=== PATIENT | male | born 1990 | race Two or more races ===

== ENCOUNTER 2025-01-05 11:26 | Emergency (ER) | payer SELFPAY ==
[~2025-01-05] VITALS: Ht 167.6 cm; Wt 113.0 kg
--- NOTE | 2025-01-05 11:34 | ECG ---
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
--- NOTE | 2025-01-05 12:35 | ECG ---
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
[2025-01-05 12:45] LABS: Hematocrit 45.8 % (41.0-53.0); Hemoglobin 15.6 g/dL (13.5-17.5); Mean Corpuscular Hemoglobin 27.9 pg (28.0-32.0); Mean Corpuscular Volume 82.1 fL (80.0-100.0); Nucleated Red Blood Cells % 0.1 %
[2025-01-05 12:52] LABS: Chloride 107 mmol/L (98-107); Potassium 4.0 mmol/L (3.5-5.1); Sodium 142 mmol/L (136-145)
[2025-01-05 12:53] LABS: Anion Gap 13 (5-15); Calcium 9.9 mg/dL (8.7-10.4); Carbon Dioxide 22 mmol/L (20-31)
--- NOTE | 2025-01-05 12:57 | DVH ---
CLINICAL INFORMATION: Chest pain. TECHNIQUE: Frontal and lateral chest radiographs were obtained. COMPARISON: None FINDINGS: Lungs: Clear. Cardiac: Heart size is within normal limits. Pulmonary vasculature: Unremarkable Mediastinum/anca: Within normal limits. Bones: No evidence of acute osseous abnormality. Other: No other significant finding. IMPRESSION: No evidence of acute disease in the chest.
[2025-01-05 12:58] LABS: BUN/Creatinine Ratio 13.2 (10.0-20.0); Blood Urea Nitrogen 15 mg/dL (9-23)
[2025-01-05 12:59] LABS: Glucose 131 mg/dL (74-106)
--- NOTE | 2025-01-05 14:54 | ECG ---
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
--- NOTE | 2025-01-05 16:59 | ED.PDOC ---
HPI Comments 34 y/o M, with PMHx of HTN, DM, and kidney stones presents to the ED for CC of chest pain. Patient states, he has been experiencing right sided chest pain with associated symptoms of shortness of breath x4days. Patient reports, pain to be "stabbing" in nature. Patient further relays, that he has not taken any medications for his hypertension since, June 2024. Patient denies palpitations, nausea, vomiting, or headache. No other symptoms or modifying factors are present at this time. Chief Complaint: Chest Pain Time Seen by MD: 14:00 Reviewed Notes: Nurses Notes, Medications, Allergies Allergies: Coded Allergies: NO KNOWN ALLERGIES (Unverified , 01/05/25) Information Source: Patient Mode of Arrival: Ambulatory Severity: Moderate Timing: Days Duration: Since onset Prehospital treatment: None Location: Chest (R) Radiation: Neck Quality: Stabbing Onset: At Rest Cardiac Risk Factors: Hyperlipidemia, HTN, Diabetes PE Risk Factors: None History of: Aortic Disease Modifying Factors: Nothing Associated Signs and Symptoms: SOB Past Medical History PAST MEDICAL HISTORY: DM, High Lipids, HTN Surgical History (Other): aortic disection Family History Family History: Unknown Social History Smoker: Non-Smoker Alcohol: Denies ETOH Use Drugs: Denies Drug Use Lives In: Home Constitutional: denies: chills, diaphoresis, fatigue, fever, malaise, sweats, weakness, others EENTM: denies: blurred vision, double vision, ear bleeding, ear discharge, ear drainage, ear pain, ear ringing, eye pain, eye redness, hearing loss, mouth pain, mouth swelling, nasal discharge, nose bleeding, nose congestion, nose pain, photophobia, tearing, throat pain, throat swelling, voice changes, others Respiratory: reports: shortness of breath; denies: cough, hemoptysis, orthopnea, SOB at rest, SOB with excertion, stridor, wheezing, others Cardiovascular: reports: chest pain; denies: dizzy spells, diaphoresis, Dyspnea on exertion, edema, irregular heart beat, left arm pain, lightheadedness, palpitations, PND, syncope, others Gastrointestinal: denies: abdomen distended, abdominal pain, blood streaked bowels, constipated, diarrhea, dysphagia, difficulty swallowing, hematemesis, melena, nausea, poor appetite, poor fluid intake, rectal bleeding, rectal pain, vomiting, others Genitourinary: denies: burning, dysuria, flank pain, frequency, hematuria, incontinence, penile discharge, penile sore, pain, testicle pain, testicle swelling, urgency, others Neurological: denies: dizziness, fainting, headache, left sided numbness, left sided weakness, numbness, paresthesia, pre-existing deficit, right sided numbness, right sided weakness, seizure, speech problems, tingling, tremors, weakness, others Musculoskeletal: denies: back pain, gout, joint pain, joint swelling, muscle pain, muscle stiffness, neck pain, others Integumetry: denies: bruises, change in color, change in hair/nails, dryness, laceration, lesions, lumps, rash, wounds, others Allergic/Immunocompromised: denies: Difficulty Healing, Frequent Infections, Hives, Itching, others Hematologic/Lymphatic: denies: anemia, blood clots, easy bleeding, easy bruising, swollen glands, others Endocrine: denies: excessive hunger, excessive sweating, excessive thirst, excessive urination, flushing, intolerance to cold, intolerance to heat, une xplained weight gain, unexplained weight loss, others Psychiatric: denies: anxiety, bipolar disorder, depression, hopeless, panic disorder, schizophrenia, sleepless, suicidal, others All Other Systems: Reviewed and Negative Physical Exam General Appearance: Moderate Distress HEENT: Normal ENT Inspection, Pharynx Normal, TMs Normal Neck: Full Range of Motion, Non-Tender, Normal, Normal Inspection Respiratory: Chest Non-Tender, Lungs Clear, No Accessory Muscle Use, No Respiratory Distress, Normal Breath Sounds Cardiovascular: No Edema, No JVD, No Murmur, No Gallop, Normal Peripheral Pulses, Regular Rate/Rhythm Breast Exam: Deferred Gastrointestinal: No Organomegaly, Non Tender, No Pulsatile Mass, Normal Bowel Sounds, Soft Genitalia: Deferred Pelvic: Deferred Rectal: Deferred Extremities: No calf tenderness, Normal capillary refill, Normal inspection, Normal range of motion, Non-tender, No pedal edema Musculoskeletal : Apperance: Normal Neurologic: Alert, body trimmer upholsterer II-XII nml as Tested, No Motor Deficits, Normal Affect, Normal Mood, No Sensory Deficits Cerebellar Function: Normal Reflexes: Normal Skin: Dry, Normal Color, Warm Lymphatic: No Adenopathy EKG EKG : Pulse Rate (adult): 109 [place]: Normal Cardiac Rhythm: ST Block: None Hypertrophy: None ST: Normal Was a procedure done? Was a procedure done?: No CP Differential Dx Differential Diagnosis: Angina Differential Diagnosis: Chest Wall Pain, Costochondritis, Esophageal reflux/spasm, Gastritis X-Ray, Labs, Meds, VS Vital Signs Date Time Temp Pulse Resp B/P (MAP) Pulse Ox O2 Delivery O2 Flow Rate FiO2 01/05/25 16:59 109 01/05/25 16:28 98.1 102 12 150/98 (115) 98 98.1 01/05/25 14:53 91 01/05/25 14:18 98.1 106 16 173/113 (133) 97 98.1 01/05/25 12:34 97 01/05/25 12:21 100 97 Room Air 01/05/25 12:21 98.7 100 17 154/103 (120) 97 98.7 01/05/25 11:31 109 01/05/25 11:29 98.9 106 23 186/101 97 98.9 Lab Test 01/05/25 15:35 01/05/25 13:44 01/05/25 11:40 Range/Units Troponin I High Sensitivity 3 L < 3 L 3 L </=54 ng/L White Blood Count 8.8 4.4-10.8 10^3/uL Red Blood Count 5.58 4.5-5.90 10^6/uL Hemoglobin 15.6 13.5-17.5 g/dL Hematocrit 45.8 41.0-53.0 % Mean Corpuscular Volume 82.1 80.0-100.0 fL Mean Corpuscular Hemoglobin 27.9 L 28.0-32.0 pg Mean Corpuscular Hemoglobin Concent 34.0 32.0-36.0 g/dL Red Cell Distribution Width 14.7 H 11.8-14.3 % Platelet Count 293 140-450 10^3/uL Mean Platelet Volume 8.5 6.9-10.8 fL Neutrophils (%) (Auto) 74.0 37.0-80.0 % Lymphocytes (%) (Auto) 19.4 10.0-50.0 % Monocytes (%) (Auto) 4.7 0.0-12.0 % Eosinophils (%) (Auto) 1.1 0.0-7.0 % Basophils (%) (Auto) 0.8 0.0-2.0 % Neutrophils # (Auto) 6.5 1.6-8.6 10 ^3/uL Lymphocytes # (Auto) 1.7 0.4-5.4 10 ^3/uL Monocytes # (Auto) 0.4 0-1.3 10 ^3/uL Eosinophils # (Auto) 0.1 0-0.8 10 ^3/uL Basophils # (Auto) 0.1 0-0.2 10 ^3/uL Nucleated Red Blood Cells 0.1 % D-Dimer, Quantitative 0.21 0.0-0.49 mg/L FEU Sodium Level 142 136-145 mmol/L Potassium Level 4.0 3.5-5.1 mmol/L Chloride Level 107 98-107 mmol/L Carbon Dioxide Level 22 20-31 mmol/L Anion Gap 13 5-15 Blood Urea Nitrogen 15 9-23 mg/dL Creatinine 1.14 0.700-1.30 mg/dL Glomerular Filtration Rate Calc 85 >90 mL/min BUN/Creatinine Ratio 13.2 10.0-20.0 Serum Glucose 131 H 74-106 mg/dL Calcium Level 9.9 8.7-10.4 mg/dL Current Medications Medications (Trade) Dose Ordered Sig/Citlaly Route Start Time Stop Time Status Last Admin Aspirin 162 mg ONCE ONCE PO 01/05/25 12:00 01/05/25 12:02 DC 01/05/25 12:08 The patient's CBC is within normal limits The chemistry panel is within normal limits The patient's aspirin has 162 mg by mouth The patient's troponin level x3 is negative At this time, the patient is being admitted to the hospitalist Images Reviewed?: Images reviewed and evaluated by me Time of 1ST Reevaluation: 14:30 Reevaluation 1ST: Unchanged Patient Education/Counseling: Diagnosis, Treatment, Prognosis Family Education/Counseling: No Family Present SEPSIS Sepsis Screen Date sepsis recognized/suspect: Jan 05, 2025 Time Sepsis recognized/suspect: 1129 Recent Procedure: No On Antibiotic Therapy: No Respiratory Rate >20: Yes Heart Rate >90: Yes Temp<36 C (96.8 F) or >38.3 C: No SBP <90 or MAP <65 mmHG: No New Acute Mental Status Change: No Is the patient on CPAP, BIPAP,: No Physician Orders Heplock Iv (01/05/25 12:00) Business Consultant (01/05/25 12:00) Blood Pressure (01/05/25 12:00) Pulse Oximetry (01/05/25 12:00) Chest Two Views Routine (01/05/25 12:00) Admit (01/05/25 16:59) Nitroglycerin Sublingual (Ntrostat Subli (01/05/25 17:00) Morphine Sulfate Injection (01/05/25 17:00) Oxygen By Nasal Cannula (01/05/25 16:59) Stat Ekg For Chest Pain (01/05/25 16:59) Notify Md Of Changes From Base (01/05/25 16:59) Car Inspection And Repair Manager For 24 Hours (01/05/25 16:59) Emergency Dysrhythmia Protocol (01/05/25 16:59) Pantoprazole (Protonix) (01/06/25 10:00) Ondansetron Hcl (Zofran) (01/05/25 17:00) Losartan Tablet (Cozaar Tablet) (01/06/25 10:00) Losartan Tablet (Cozaar Tablet) (01/05/25 17:00) Metoprolol Xl Succinate (Toprol Xl) (01/05/25 17:00) Metoprolol Xl Succinate (Toprol Xl) (01/06/25 10:00) Ct Angio Chest Contrast (01/05/25 16:59) Comprehensive Metabolic Panel (01/06/25 04:00) Complete Blood Count (01/06/25 04:00) Acetaminophen Tablet (Tylenol Tablet) (01/05/25 17:00) Hydrocodone-Acet 5/325mg Tab ([place] 5/32 (01/05/25 17:00) Vital Signs Date Time Temp Pulse Resp B/P (MAP) Pulse Ox O2 Delivery O2 Flow Rate FiO2 01/05/25 16:59 109 01/05/25 16:28 98.1 102 12 150/98 (115) 98 98.1 01/05/25 14:53 91 01/05/25 14:18 98.1 106 16 173/113 (133) 97 98.1 01/05/25 12:34 97 01/05/25 12:21 100 97 Room Air 01/05/25 12:21 98.7 100 17 154/103 (120) 97 98.7 01/05/25 11:31 109 01/05/25 11:29 98.9 106 23 186/101 97 98.9 Laboratory Tests Test 01/05/25 11:40 White Blood Count 8.8 10^3/uL (4.4-10.8) Medications Medications Dose Ordered Sig/Citlaly Route Start Time Stop Time Status Last Admin Dose Admin Aspirin 162 mg ONCE ONCE PO 01/05/25 12:00 01/05/25 12:02 DC 01/05/25 12:08 Departure 1 Departure Time of Disposition: 17:18 Impression: Primary Impression: Acute myocardial ischemia Disposition: ADMITTED INPATIENT Admit to: Tele Condition: Fair Critical Care Note Critical Care Time?: Yes (35 min-critical care time only) Stability Stability form required: Yes Unstable for transfer: Telemetry monitoring (Telemetry monitoring required), ED Physician Assesment (Clinical assesment) Heart Score Heart Score: Heart Score Response (Comments) Value History Slightly Suspicious 0 EKG N/A 0 Age <45 0 Risk Factors 1 or 2 risk factors 1 Troponin Normal limit 0 Total 1 I personally scribed for MAXI WILBURN MD ([email or web address]) on 01/05/25 at 16:59. Electronically submitted by Valorie Amaro ([email or web address]). MAXI WILBURN MD Jan 05, 2025 16:59
[2025-01-05] MEDS ORDERED: ONDANSETRON HCL 4 MG/2 ML VIAL IV PRN (17:00)
[2025-01-05] MEDS ORDERED: MORPHINE SULFATE INJ 2 MG/ml SYRG IV PRN (17:00)
[2025-01-05] MEDS ORDERED: ACETAMINOPHEN 325 MG TAB PO PRN (17:00)
[2025-01-05] MEDS ORDERED: HYDROcodone-ACET 5/325MG TAB PO PRN (17:00)
[2025-01-05] MEDS ORDERED: NITROGLYCERIN 0.4 MG SL TAB SL PRN (17:00)
[2025-01-05 18:26] VITALS: PULSE 91; RESP 16; O2SAT 95
[2025-01-05] MEDS: PANTOPRAZOLE 40 MG/10 ML VIAL INJ IV ONE (18:34)
[2025-01-05] MEDS: LOSARTAN POTASSIUM 50 MG TAB PO ONE (18:34)
[2025-01-05] MEDS: METOPROLOL SUCCINATE XL 50 MG TAB PO ONE (18:35)
--- NOTE | 2025-01-05 19:33 | DVH ---
CTA Chest with intravenous contrast INDICATION: HTN, chest pain , h/o aortic dissection with repair COMPARISON: None TECHNIQUE: Multidetector spiral CTA of the chest was performed of the chest with intravenous contrast . PULMONARY ANGIOGRAPHY PROTOCOL was utilized using a bolus-tracking technique centered on the main p ulmonary artery. Axial, coronal and sagittal multiplanar and MIP reformats were performed. Radiation Dose : 1. Chest: CTDI volume is 27.41 mGy. Dose-length product is 799.83 mGy*cm The dose indicators for CT are the volume Computed Tomography (CT) Dose Index (CTDIvol) and the Dose Length Product (DLP), and are measured in units of mGy and mGy-cm, respectively. These indicators are not patient dose, but values generated from the CT scanner acquisition factors. The report includes radiation exposure data for exposures received during this examination. Findings: Pulmonary artery: No pulmonary embolism Lower neck: Normal thyroid. Lungs: No focal consolidation, pleural effusion or pneumothorax. Heart/Vascular Structures: Type B aortic dissection is present extending from the anterior aortic arc h distal to the left common carotid artery origin extending inferiorly to the aortic hiatus where the re is partially visualized stent graft. Lymph Nodes: No adenopathy Pleura: No pleural effusion or significant pneumothorax. Musculoskeletal: No acute osseous abnormality. Soft tissues: Normal. Upper abdomen: Limited portions of the upper abdomen are unremarkable. IMPRESSION: No pulmonary embolism. Type B aortic dissection extending from the anterior aortic arch to the aortic hiatus where there is a partially visualized stent graft. Per given history, patient has history of prior aortic dissection with repair. No prior imaging is available for comparison but findings may be chronic. Superimposed acute aortic pathology is not completely excluded. Clinical correlation advised.
[2025-01-05 19:35] VITALS: PULSE 91; RESP 17; O2SAT 95
[2025-01-05] MEDS: IOHEXOL 350 MG/ML 100ML IJ ONE (19:42)
[2025-01-05] MEDS: LABETALOL HCL 20 MG/4 ML VL IV ONE (23:44)
[2025-01-06 00:13] VITALS: BP 136/89; PULSE 87; RESP 18; TEMP 98; O2SAT 96
[2025-01-06] MEDS ORDERED: LOSARTAN POTASSIUM 50 MG TAB PO SCH (10:00)
[2025-01-06] MEDS ORDERED: PANTOPRAZOLE 40 MG/10 ML VIAL INJ IV SCH (10:00)
[2025-01-06] MEDS ORDERED: METOPROLOL SUCCINATE XL 50 MG TAB PO SCH (10:00)
== END 2025-01-06 00:40 | disposition short-term general hospital (02) ==
LOC: ER 11:26 → UNDOADMIN 16:59 → OVERFLOW 16:59 → ER 19:41
DX: I24.9 Acute ischemic heart disease, unspecified (principal); I10 Essential (primary) hypertension; E78.5 Hyperlipidemia, unspecified; E11.9 Type 2 diabetes mellitus without complications
CPT/HCPCS: 36415; 71046; 71275; 80048; 84484; 85025; 85379; 93005; 96374; 99291; J2470; Q9967